=== PATIENT | female | born 1965 | race American Indian/Alaskan Native ===

== ENCOUNTER → 2019-03-01 | Outpatient (CLI) | payer OTHER ==
[~2019-03-01] MED LIST: ALBU90OI INH; AZIT250 PO; HYDACE5 PO; HYDCHLSU PO; IBUP600 PO; IRON PO; METF500 PO; MULVITMINE PO; PENVK500; PENVK500 PO; PRED20 PO; VENL75; VITAMENS
[2019-03-02 05:45] LABS: Stool Occult Bld Immuno 1 Negative (NEGATIVE)
== END ==
LOC: LAB SHORT 14:12 → LAB 14:12
PROVIDERS: Nurse Practitioner Family
DX: Z12.11 Encounter for screening for malignant neoplasm of colon (principal)
CPT/HCPCS: G0328

== ENCOUNTER 2020-05-22 19:30 | Emergency (ER) | payer OTHER ==
[~2020-05-22] VITALS: Ht 160 cm; Wt 74.8 kg
[2020-05-22] MEDS ORDERED: GLIP5 PO (20:51)
[2020-05-22] MEDS ORDERED: ZOLOFT25 MG PO (20:51)
[2020-05-22] MEDS ORDERED: AMLO10 PO (20:52)
[2020-05-22] MEDS ORDERED: CYCL10 PO (22:11)
== END 2020-05-22 22:48 | disposition home or self-care (01) ==
LOC: ER 19:30
DX: S16.1XXA Strain of muscle, fascia and tendon at neck level, initial encounter (principal); I10 Essential (primary) hypertension; E11.9 Type 2 diabetes mellitus without complications; Z79.84 Long term (current) use of oral hypoglycemic drugs; V49.40XA Driver injured in collision with unspecified motor vehicles in traffic accident, initial encounter; Y92.410 Unspecified street and highway as the place of occurrence of the external cause
CPT/HCPCS: 72125; 99284-25